=== PATIENT | female | born 1950 | race Caucasian/White ===

== ENCOUNTER → 2018-01-22 08:57 | Outpatient (CLI) | payer MEDICARE, OTHER, SELFPAY ==
[2018-01-22 09:35] LABS: Add Manual Diff / Slide Review NO; Basophils Percent Auto 0.9 % (0-2); Eosinophils Percent Auto 4.4 % (2-4); Hematocrit 41.4 % (36-46); Hemoglobin 14.5 g/dL (12.0-16.0); Lymphocytes Percent Auto 31.1 % (25-40); Mean Corpuscular HGB Conc 35.1 % (30-36); Mean Corpuscular Hemoglobin 31.9 PG (26-34); Monocytes Percent Auto 9.6 % (3-14); Neutrophils Absolute Auto 2300 /uL (3000-5900); Platelet Count 232 X10^3/uL (150-400); Red Blood Cell Count 4.55 X10^6/uL (4.0-5.2); Red Cell Distribution Width 12.8 % (11.6-14.8); White Blood Cell Count 4.3 X10^3/uL (4.5-11.0)
[2018-01-22 09:49] LABS: Alanine Aminotransferase 20 IU/L (9-52); Albumin 4.5 g/dL (3.5-5.0); Albumin Globulin Ratio 1.7 (1.0-2.8); Alkaline Phosphatase 69 U/L (38-126); Aspartate Aminotransferase 29 IU/L (14-36); Bilirubin Total 0.7 mg/dL (0.2-1.3); Blood Urea Nitrogen 16 mg/dL (7-17); Calcium 9.8 mg/dL (8.4-10.2); Carbon Dioxide 29 mmol/L (22-32); Chloride 108 mmol/L (98-107); Cholesterol 243 mg/dL (140-199); Estimated Glomerular Filt Rate 55.3 mL/min (>60); Globulin 2.7 g/dL (1.7-4.1); Glucose 95 mg/dL (80-110); HDL Cholesterol 51 mg/dL (40-60); HEMOLYSIS < 15 (0-50); LDL Cholesterol Calculated 170 mg/dL (<100); Potassium 5.1 mmol/L (3.4-5.1); Sodium 147 mmol/L (137-145); Total Protein 7.2 g/dL (6.3-8.2); Triglycerides 108 mg/dL (35-150)
== END ==
PROVIDERS: PCP Physician Assistant; Visit Provider Physician Assistant
DX: I10 Essential (primary) hypertension (principal); E78.5 Hyperlipidemia, unspecified
CPT/HCPCS: 36415; 80053; 80061; 85025

== ENCOUNTER → 2019-01-16 11:05 | Outpatient (CLI) | payer MEDICARE, OTHER, SELFPAY ==
[2019-01-16 12:13] LABS: Add Manual Diff / Slide Review NO; Basophils Absolute Auto 0 /uL (0-100); Basophils Percent Auto 0.7 % (0-2); Eosinophils Absolute Auto 200 /uL (0-450); Eosinophils Percent Auto 3.2 % (2-4); Hematocrit 38.6 % (36-46); Hemoglobin 13.6 g/dL (12.0-16.0); Lymphocytes Absolute Auto 1100 /uL (1100-4500); Lymphocytes Percent Auto 22.9 % (25-40); Mean Corpuscular HGB Conc 35.1 % (30-36); Mean Corpuscular Hemoglobin 32.1 PG (26-34); Mean Corpuscular Volume 91.4 fL (80-100); Monocytes Absolute Auto 400 /uL (0-900); Monocytes Percent Auto 8.5 % (3-14); Neutrophils Absolute Auto 3200 /uL (1500-7000); Neutrophils Percent Auto 64.7 % (50-75); Platelet Count 256 X10^3/uL (150-400); Red Blood Cell Count 4.22 X10^6/uL (4.0-5.2); Red Cell Distribution Width 12.8 % (11.6-14.8); White Blood Cell Count 4.9 X10^3/uL (4.5-11.0)
[2019-01-16 12:31] LABS: Alanine Aminotransferase 20 IU/L (9-52); Albumin 4.4 g/dL (3.5-5.0); Albumin Globulin Ratio 1.5 (1.0-2.8); Alkaline Phosphatase 75 U/L (38-126); Aspartate Aminotransferase 32 IU/L (14-36); Bilirubin Total 0.8 mg/dL (0.2-1.3); Blood Urea Nitrogen 19 mg/dL (7-17); Calcium 9.3 mg/dL (8.4-10.2); Carbon Dioxide 27 mmol/L (22-32); Chloride 107 mmol/L (98-107); Cholesterol 223 mg/dL (140-199); Estimated Glomerular Filt Rate 55.1 mL/min (>60); Globulin 2.9 g/dL (1.7-4.1); Glucose 90 mg/dL (80-110); HDL Cholesterol 51 mg/dL (40-60); HEMOLYSIS < 15 (0-50); LDL Cholesterol Calculated 149 mg/dL (<100); Potassium 4.1 mmol/L (3.4-5.1); Sodium 141 mmol/L (137-145); Total Protein 7.3 g/dL (6.3-8.2); Triglycerides 116 mg/dL (35-150)
== END ==
PROVIDERS: PCP Physician Assistant; Visit Provider Physician Assistant
DX: E78.5 Hyperlipidemia, unspecified (principal); I10 Essential (primary) hypertension
CPT/HCPCS: 36415; 80053; 80061; 85025

== ENCOUNTER → 2019-02-16 14:15 | Outpatient (CLI) | payer MEDICARE, OTHER, SELFPAY ==
--- NOTE | 2019-02-16 | DI.MG.S_ITS ---
BILATERAL DIGITAL SCREENING MAMMOGRAM 3D/2D WITH CAD: 02/16/2019 CLINICAL: Routine screening. Baseline exam. Comparison is made to exams dated: 03/25/2013 mammogram, 06/28/2010 mammogram, and 11/08/2006 mammogram - [facility]. There are scattered fibroglandular elements in both breasts. Current study was also evaluated with a Computer Aided Detection (CAD) system. There are new 0.9 cm grouped linear heterogeneous calcifications in the left breast at 1 o'clock middle depth. No other significant masses, calcifications, or other findings are seen in either breast. IMPRESSION: INCOMPLETE: NEEDS ADDITIONAL IMAGING EVALUATION The new 0.9 cm grouped linear heterogeneous calcifications in the left breast are indeterminate. Mediolateral, spot magnification, and additional views are recommended. This exam was interpreted at Station ID: [id number]. NOTE: For mammograms, a report in lay terms will be sent to the patient. Approximately 15% of breast malignancies will not be visualized mammographically. In the management of a palpable breast mass, a negative mammogram must not discourage biopsy of a clinically suspicious lesion. Electronically Signed By: Wade Mas M.D. aty/:02/16/2019 15:05:23 letter sent: Additional Imaging Needed ACR BI-RADS Category 0: Incomplete [id number]
== END ==
PROVIDERS: PCP Physician Assistant; Visit Provider Physician Assistant
DX: Z12.31 Encounter for screening mammogram for malignant neoplasm of breast (principal); M85.852 Other specified disorders of bone density and structure, left thigh; Z78.0 Asymptomatic menopausal state; Z90.722 Acquired absence of ovaries, bilateral
CPT/HCPCS: 77063; 77067; 77080

== ENCOUNTER → 2019-12-07 09:19 | Outpatient (CLI) | payer MEDICARE, OTHER, SELFPAY ==
[2019-12-07 10:11] LABS: Add Manual Diff / Slide Review NO; Basophils Absolute Auto 0 /uL (0-100); Eosinophils Absolute Auto 100 /uL (0-450); Eosinophils Percent Auto 3.1 % (2-4); Hematocrit 37.9 % (36-46); Hemoglobin 13.2 g/dL (12.0-16.0); Lymphocytes Absolute Auto 1200 /uL (1100-4500); Lymphocytes Percent Auto 28.3 % (25-40); Mean Corpuscular HGB Conc 34.7 % (30-36); Mean Corpuscular Hemoglobin 31.8 PG (26-34); Mean Corpuscular Volume 91.4 fL (80-100); Monocytes Absolute Auto 400 /uL (0-900); Monocytes Percent Auto 8.6 % (3-14); Neutrophils Absolute Auto 2400 /uL (1500-7000); Platelet Count 232 X10^3/uL (150-400); Red Blood Cell Count 4.14 X10^6/uL (4.0-5.2); Red Cell Distribution Width 12.7 % (11.6-14.8); White Blood Cell Count 4.1 X10^3/uL (4.5-11.0)
[2019-12-07 10:25] LABS: Alanine Aminotransferase 23 IU/L (<35); Albumin 4.3 g/dL (3.5-5.0); Albumin Globulin Ratio 1.6 (1.0-2.8); Alkaline Phosphatase 79 U/L (38-126); Aspartate Aminotransferase 30 IU/L (14-36); BUN Creatinine Ratio 14.1 (6-22); Bilirubin Total 0.6 mg/dL (0.2-1.3); Blood Urea Nitrogen 13 mg/dL (7-17); Calcium 9.7 mg/dL (8.4-10.2); Carbon Dioxide 27 mmol/L (22-32); Chloride 109 mmol/L (98-107); Cholesterol 160 mg/dL (140-199); Estimated Glomerular Filt Rate > 60.0 mL/min (>60); Globulin 2.7 g/dL (1.7-4.1); Glucose 99 mg/dL (80-110); HDL Cholesterol 47 mg/dL (40-60); HEMOLYSIS < 15 (0-50); LDL Cholesterol Calculated 86 mg/dL (<100); Potassium 4.3 mmol/L (3.4-5.1); Sodium 141 mmol/L (137-145); Triglycerides 137 mg/dL (35-150)
[2019-12-07 11:03] LABS: TSH w/ Reflex to FT4 2.79 uIU/mL (0.47-4.68)
[2019-12-07 11:12] LABS: Vitamin B12 715 pg/mL (239-931)
== END ==
PROVIDERS: PCP Family Medicine; Referring Provider Family Medicine; Visit Provider Family Medicine
DX: E78.5 Hyperlipidemia, unspecified (principal); R41.3 Other amnesia
CPT/HCPCS: 36415; 80053; 80061; 82607; 84443; 85025

== ENCOUNTER → 2019-12-08 09:07 | Outpatient (CLI) | payer MEDICARE, OTHER, SELFPAY ==
--- NOTE | 2019-12-08 09:09 | DI.MRI.S_ITS ---
PROCEDURE: MR STROKE Pre- and post-contrast brain MRI, non-contrast brain MR angiogram, pre- and postcontrast neck MR angiogram INDICATIONS: memory loss TECHNIQUE: Brain: Noncontrast axial T1 spin echo, axial T2 fast spin echo, sagittal and axial FLAIR, coronal T2 fast spin echo, axial gradient echo, axial diffusion and ADC through the brain. After the administration of contrast, axial 3D VIBE of the cranial vasculature and brain. Brain MRA: Non-contrast 3-D time of flight MR angiogram, with multiple icayfiq-wxjbxhzog-icyuflirny (MIP) reformats performed. Neck MRA: Axial and sagittal TruFISP through the neck. Coronal dynamic MR angiogram during administration of contrast in the arterial and venous phases, with 3-dimenstional qbgqsdf-ofockpbgl-vkeaqxmxrp (MIP) reformats constructed from subtraction images. COMPARISON: None. FINDINGS: Image quality: Limited secondary to motion artifact. BRAIN: CSF spaces: Ventricles are normal in size and shape. Basal cisterns are patent. No extra-axial fluid collections. Brain: No intracranial bleeds or mass effects. There is mild, diffuse cerebral volume loss. There are mild periventricular and subcortical white matter chronic microvascular ischemic changes. Fajardo-white matter interface is normal. Diffusion weighted images show no acute ischemic insults. Brainstem appears normal. Normal intravascular flow voids are present. No abnormal intracranial enhancement. Skull and face: Calvarial marrow signal is normal. Orbits appear normal. Sinuses: Sinuses and mastoids are clear. BRAIN MR ANGIOGRAM: Anterior circulation: Intracranial internal carotid arteries are normal in size and enhancement. The flow within the paired anterior cerebral arteries is normal and symmetric. The flow within the middle cerebral arteries is normal and symmetric. The anterior communicating artery is seen. No stenoses, occlusions, or aneurysms. Posterior circulation: The visualized portions of the vertebral arteries demonstrate normal caliber, and join to form a normal appearing basilar artery. The flow within the posterior cerebral arteries is normal and symmetric. No stenoses, occlusions, or aneurysms. NECK MR ANGIOGRAM: Carotids: Great vessels demonstrate a conventional anatomy as they arise from the aortic arch. The origins of the common carotid arteries are poorly visualized due to motion artifact. The calibers and courses of both common carotid arteries are normal. The bifurcation regions appear normal bilaterally. The internal carotid arteries demonstrate normal course and caliber. Posterior circulation: The origins of the vertebral arteries are poorly visualized due to motion artifact. More superior portions of both vertebral arteries demonstrate normal course and caliber, and join to form a normal appearing basilar artery. Miscellaneous: Subclavian arteries appear patent. Pre-contrast images through the neck show no soft tissue abnormalities. IMPRESSION: BRAIN MRI: 1. No acute intracranial disease process. 2. No areas of acute or chronic infarction. 3. No abnormal intracranial mass or suspicious postcontrast enhancement. 4. Mild, diffuse cerebral volume loss. 5. Mild periventricular and subcortical white matter chronic microvascular ischemic change. BRAIN MR ANGIOGRAM: No large vessel occlusion, hemodynamically significant stenosis, vascular dissection or aneurysm. NECK MR ANGIOGRAM: 1. No large vessel occlusion, hemodynamically significant stenosis or vascular dissection. 2. Origins of the common carotid arteries and vertebral arteries poorly visualized due to motion artifact. Dictated by: Teresa Macias MD, PhD on 12/08/2019 at 13:42 Approved by: Teresa Macias MD, PhD on 12/08/2019 at 14:22
== END ==
PROVIDERS: PCP Family Medicine; Referring Provider Family Medicine; Visit Provider Family Medicine
DX: R41.3 Other amnesia (principal); E78.5 Hyperlipidemia, unspecified; F41.9 Anxiety disorder, unspecified
CPT/HCPCS: 70548; 70553; A9579

== ENCOUNTER 2021-09-07 13:48 | Emergency (ER) | payer MEDICARE, OTHER, SELFPAY ==
[2021-09-07 14:15] VITALS: BP 133/77; PULSE 77; RESP 15; TEMP 36.6; O2SAT 97; BMI 29.7
[2021-09-07] MEDS: TET,DIPH,PERTUSS(ACELL),VAC/PF 0.5 ML SYRINGE IM (14:46)
--- NOTE | 2021-09-07 14:46 | DI.RAD.S_ITS ---
PROCEDURE: XR HAND LT MIN 3V INDICATIONS: dog bite TECHNIQUE: 3 views of the hand(s) acquired. COMPARISON: None. FINDINGS: Bones: No fractures or dislocations. Carpal bones are normally aligned. No suspicious bony lesions. Soft tissues: No suspicious soft tissue calcifications. No radiopaque foreign body. No soft tissue gas. IMPRESSION: No evidence acute bony abnormality of the left hand Dictated by: Danyel Cazares M.D. on 09/07/2021 at 15:22 Approved by: Danyel Cazares M.D. on 09/07/2021 at 15:23
--- NOTE | 2021-09-07 14:49 | ED_ITS ---
HPI - Animal Bite <Flavia Skaggs [facility] - Last Filed: 09/07/21 20:04> General Chief Complaint: Animal Bite Stated Complaint: dog bite Time Seen by Provider: 09/07/21 14:46 Source: patient Mode of arrival: Ambulatory History of Present Illness HPI narrative: This is a 71-year-old female presents to the emergency department after a known dog bite to the left hand. Patient states the dog is up-to-date on his vacc inations, she needs a tetanus vaccination update. She states the dog is her daughters, the dog is well, she has a laceration to the dorsum of her left hand 4 cm long, with 2 small lacerations less than 0.5 cm adjacent to this on the dorsum of her left hand. She is not on any anticoagulants, denies any mobility deficit or problems with her left hand after this injury. She states that she put a dressing on it and the bleeding has stopped but has not cleaned yet. She took Tylenol 0800 hours this morning, denies any other pain medication. She denies any allergies. Related Data Home Medications Medication Instructions Recorded Confirmed ascorbate calcium (vitamin C) 500 500 mg PO DAILY 11/17/19 04/20/20 mg tablet calcium-vitamin C-vit D2-min tablet tab PO 11/17/19 04/20/20 cranberry extract 650 mg capsule 650 mg PO DAILY cap 11/17/19 04/20/20 doxylamine succinate 25 mg tablet 25 mg PO BEDTIME PRN 11/17/19 04/20/20 (Unisom (doxylamine)) glucosamine HCl 1,500 mg tablet 1,500 mg PO DAILY 11/17/19 04/20/20 grape seed extract 50 mg capsule 50 mg PO ONCE 11/17/19 04/20/20 (Grape Seed) magnesium chloride 64 mg 128 mg PO DAILY 11/17/19 04/20/20 tablet,extended release melatonin 10 mg tablet 10 mg PO BEDTIME PRN 11/17/19 04/20/20 milk thistle seed mg PO 11/17/19 04/20/20 dv-awohjtpbfc-sbxlmkhmb-turmeri 250 mg-250 mg tablet (Liver Complex) multivitamin 1 tab PO DAILY 11/17/19 04/20/20 multivitamin 1 tab PO DAILY 11/17/19 04/20/20 omega-3 fatty acids-fish oil 360 1 cap PO DAILY 11/17/19 04/20/20 mg-1,200 mg capsule (Fish Oil) zinc picolinate 30 mg-copper 1 tab PO tab 11/17/19 04/20/20 gluconate 2 mg tablet Previous Rx's Medication Instructions Recorded estradiol 10 mcg vaginal tablet 10 mcg VAG 2XW #48 tab 12/24/19 (Vagifem) trazodone 50 mg tablet See Rx Instructions .ROUTE 12/30/19 .COMPLEX #60 tab diphenoxylate-atropine 2.5 1 tab PO BID PRN #20 tab 03/15/20 mg-0.025 mg tablet atorvastatin 10 mg tablet 10 mg PO DAILY #90 tab 06/27/21 amoxicillin 875 mg-potassium 1 tab PO BID 7 Days #14 tab 09/07/21 clavulanate 125 mg tablet mupirocin 2 % topical ointment 1 applic TOPICAL BID PRN #15 g 09/07/21 Allergies Allergy/AdvReac Type Severity Reaction Status Date / Time No Known Drug Allergies Allergy Verified 09/07/21 14:18 Review of Systems <ROSANNE Montalvo - Last Filed: 09/07/21 20:04> Review of Systems Narrative: General: denies fever, chills, malaise, sweats, fatigue Head/Neck: denies headache, neck pain, dizziness Eyes: denies visual changes, eye pain Cardio: denies chest pain, palpitations, edema Respiratory: denies dyspnea, cough, orthopnea MSK: denies joint pain, muscle weakness Skin: denies rash, itching, left hand skin tear verses laceration, and 2 small skin tears/lacerations next to this. Neuro: denies numbness, tingling Patient History <ROSANNE Montalvo - Last Filed: 09/07/21 20:04> Medical History Colitis (~1984) Fecal incontinence (~2004) Foot pain (~2019) Fractures (~1959) Frequent UTI (~1994) Tinnitus (~2017) Ulcerative colitis (~1984) Wears glasses Surgical History Anesthesia H/O wrist surgery (~1961) History of hysterectomy (~1989) History of knee surgery (~2005) Family History Mother Diabetes mellitus Hypertension Social History marital status: household members: spouse salomón/orthodox: [employer] / [employer] Smoking Status: Never smoker alcohol intake: never substance use type: does not use Smoking Status: Never smoker alcohol intake frequency: holidays/special occasions only Substance Use Type: does not use Exam <ROSANNE Montalvo - Last Filed: 09/07/21 20:04> Narrative Exam Narrative: Independently reviewed vitals signs and nursing notes. General: cooperative, comfortable, in no acute distress, well developed and well groomed Head: atraumatic, symmetrical facial expressions Neck: supple, atraumatic, without lymphadenopathy. Eyes: pupils equal round and reactive, EOMI Nose: nares patent, no rhinorrhea Mouth/Throat: moist mucus membranes Cardiovascular: regular rate and rhythm, no peripheral edema, warm extremities Respiratory: normal effort, able to speak in complete sentences, no audible wheezing, stridor, or rales. No retractions or tachypnea. GI: abdomen soft, nontender to palpation, nondistended, no masses, no exquisite tenderness with exam, without guarding or rebound. MSK: moves all extremities, ambulatory w/steady gait, neurovascularly intact, no weakness Skin: brisk capillary refill, no rash, no erythema, left hand with approximate 4 cm laceration versus skin tear on the dorsum, 2 small puncture wounds/skin tears lateral to this. No bleeding at this time, is controlled with pressure dressing, dressing removed and is not bleeding. No visible contamination to the wound. Patient has thin/fragile skin. Neuro: normal speech and cognition, A&O x3, normal tone Psych: mental status is grossly normal, congruent mood, normal affect, pleasant and cooperative Initial Vital Signs Initial Vital Signs: Vital Signs Temperature 97.8 F 09/07/21 14:15 Pulse Rate 77 09/07/21 14:15 Respiratory Rate 15 09/07/21 14:15 Blood Pressure 133/77 09/07/21 14:15 Pulse Oximetry 97 09/07/21 14:15 <Jadon Hernandez DO - Last Filed: 09/09/21 07:14> Initial Vital Signs Initial Vital Signs: Vital Signs Temperature 97.8 F 09/07/21 14:15 Pulse Rate 77 09/07/21 14:15 Respiratory Rate 15 09/07/21 14:15 Blood Pressure 133/77 09/07/21 14:15 Pulse Oximetry 97 09/07/21 14:15 Procedures <ROSANNE Montalvo - Last Filed: 09/07/21 20:04> Laceration Repair Laceration 1: Site: hand Side (If applicable): left Size (cm): 4 Description: linear, irregular and contaminated Depth: simple, single layer Local Anesthetic: lidocaine 1% and with bicarb Amount of anesthesia used (mL): 8 Pre-repair: wound explored, irrigated extensively and deep structures intact Skin layer closed with: nylon Skin layer suture size: 5-0 and 6-0 Number of sutures: 12 Technique: simple, interrupted and other (One 1 cm laceration to over the MCP joint of the left hand, to loose stitches were placed, wound edges are closely approximated, no bleeding or rainage, 3.5 cm irregular laceration/skin tear to the dorsum of her left hand has 10 sutures both 5 0 and 6 0 Ethilon with loose sutures, wound edges are cl) Course <ROSANNE Montalvo - Last Filed: 09/07/21 20:04> Orders Ordered: Discontinued Medications Acetaminophen (Acetaminophen 325 Mg Tablet) 975 mg PO NOW ONE Stop: 09/07/21 14:47 Last Admin: 09/07/21 14:56 Dose: 975 mg Documented by: KATE Amoxicillin/Clavulanate Potassium (Amoxicillin/Clav 875/125 Mg) 1 tab PO NOW ONE Stop: 09/07/21 14:47 Last Admin: 09/07/21 14:56 Dose: 1 tab Documented by: KATE Bacitracin (Bacitracin Oint 0.9 Gm Pckt) 1 applic TOP NOW ONE Stop: 09/07/21 15:09 Last Admin: 09/07/21 15:37 Dose: 1 applic Documented by: BTONER Diphtheria/Tetanus/Acell Pertussis (Tet,Diph,Pertuss(Acell),Vac/Pf 0.5 Ml Syringe) 0.5 ml IM .ONCE ONE Stop: 09/07/21 14:43 Last Admin: 09/07/21 14:46 Dose: 0.5 ml Documented by: KATE Lidocaine/Sodium Bicarbonate (Lido 1%/Sod Bicarb 8.4% (10ml) 10 Ml Syringe) 10 ml INJ NOW ONE Stop: 09/07/21 14:47 Last Admin: 09/07/21 14:56 Dose: 10 ml Documented by: KATE Vital Signs Vital signs: Vital Signs - 8 hr 09/07/21 14:15 09/07/21 16:00 Temperature 97.8 F Pulse Rate 77 69 Respiratory Rate 15 16 Blood Pressure 133/77 135/72 Pulse Oximetry 97 96 <Jadon Hernandez DO - Last Filed: 09/09/21 07:14> Orders Ordered: Discontinued Medications Acetaminophen (Acetaminophen 325 Mg Tablet) 975 mg PO NOW ONE Stop: 09/07/21 14:47 Last Admin: 09/07/21 14:56 Dose: 975 mg Documented by: KATE Amoxicillin/Clavulanate Potassium (Amoxicillin/Clav 875/125 Mg) 1 tab PO NOW ONE Stop: 09/07/21 14:47 Last Admin: 09/07/21 14:56 Dose: 1 tab Documented by: KATE Bacitracin (Bacitracin Oint 0.9 Gm Pckt) 1 applic TOP NOW ONE Stop: 09/07/21 15:09 Last Admin: 09/07/21 15:37 Dose: 1 applic Documented by: BTONER Diphtheria/Tetanus/Acell Pertussis (Tet,Diph,Pertuss(Acell),Vac/Pf 0.5 Ml Syringe) 0.5 ml IM .ONCE ONE Stop: 09/07/21 14:43 Last Admin: 09/07/21 14:46 Dose: 0.5 ml Documented by: KATE Lidocaine/Sodium Bicarbonate (Lido 1%/Sod Bicarb 8.4% (10ml) 10 Ml Syringe) 10 ml INJ NOW ONE Stop: 09/07/21 14:47 Last Admin: 09/07/21 14:56 Dose: 10 ml Documented by: KATE Vital Signs Vital signs: Vital Signs - 8 hr 09/07/21 14:15 09/07/21 16:00 Temperature 97.8 F Pulse Rate 77 69 Respiratory Rate 15 16 Blood Pressure 133/77 135/72 Pulse Oximetry 97 96 [facility] [place] - Animal Bite <Flavia Skaggs, [facility] - Last Filed: 09/07/21 20:04> Imaging Data Extremity x-ray #1: Radiologist's Impression: PROCEDURE:? XR HAND LT MIN 3V ? INDICATIONS:? dog bite ? TECHNIQUE:? 3 views of the hand(s) acquired.? ? COMPARISON:? None. ? FINDINGS:? ? Bones:? No fractures or dislocations.? Carpal bones are normally aligned.? No suspicious bony lesions.? ? Soft tissues:? No suspicious soft tissue calcifications.? No radiopaque foreign body.? No soft tissue gas. ? ? IMPRESSION:? No evidence acute bony abnormality of the left hand ? ? Dictated by: Danyel Cazares M.D. on 09/07/2021 at 15:22 ? ? Approved by: Danyel Cazares M.D. on 09/07/2021 at 15:23 ? [facility] [place] Narrative Medical decision making narrative: This is a 71-year-old female who presents to emergency department after a dog bite to the dorsum of her left hand. Patient is left handed, the dog is up-to-date on his rabies vaccinations, patient needed a tetanus vaccination, this was updated today. Patient head a 3.5 cm skin tear verses laceration to the dorsum of her left hand, this was irregular. Wound was cleansed with normal saline and Hibiclens, patient was numbed with lidocaine with sodium bicarb,, she tolerated procedure well. She received a total of 12 sutures, wound edges were approximated closely, some loose stitches were placed to allow for drainage. Patient understands to have her sutures removed in 7-10 days, she has been icing it, will take Tylenol for pain, she was given some Tylenol today. Patient was given Augmentin for dog bite prophylaxis. Patient understands to follow-up with her primary care provider or return to the emergency department for any worsening pain, signs of infection, mobility deficit, or any other concerns. X- ray was negative for foreign body or fracture. Patient is appropriate and amenable to discharge home. Vital signs are stable on repeat examination is unremarkable. Patient has been informed of results. Patient has been given strict return to ER precautions for any new or worsening symptoms. Patient understands to follow up closely with outpatient providers as instructed. Patient understands plan and agrees to discharge home. All questions and concerns answered at this time. Discharge Plan Departure Patient Disposition: Home Clinical Impression: Dog bite of dorsum of hand Laceration of hand Qualifiers: Encounter type: initial encounter Foreign body presence: without foreign body Laterality: left Qualified Code(s): S61.412A - Laceration without foreign body of left hand, initial encounter Activity Restrictions/Additional Instructions: *You have been diagnosed with a dog bite to the dorsum of your left hand. Because your left handed, please try and decrease the amount of things your doing with this hand and rest it as much as possible. Use your right hand when you can. Keep it covered while you have sutures in place with the Band-Aid at minimum. Please take the antibiotic for the next 7 days twice a day. Please follow-up in the walk-in clinic for suture removal or call Dr. Garcia and schedule an appointment at the office for a follow-up in 7 days. You can do gentle wound care twice a day, change your bandage, do not scrub, you can take a shower and let the water run over it but please do not soak it. Thank you for trusting us with your care, it was nice to meet you today, your tetanus was updated, you do not need another 1 for 10 years. Please ice this, you can use the Sumit bandage for compression to help prevent swelling. Keep it elevated or on top of the table if your sitting, this will help prevent swelling as well. Take Tylenol or ibuprofen as needed for your pain. Welcome back home, I wish you a speedy recovery. *What to do: *Please continue to take your regular medications as directed. [x ] New medication prescriptions sent to your pharmacy: [ [facility]] [ ] New medication written as a paper prescription [ ] No new medications given *Please follow up with your primary care provider in 2-3 days, call for an appointment. Let them know you were seen in the Emergency Department and that we asked that you be seen for follow-up. We will electronically transmit a record of today's note if your PCP is in our system *If you do not have a primary care provider please contact [phone] to establish care with one of the [facility] primary care providers. *Return to Emergency Department if you should have any new, worsening or concerning symptoms, such as [fever greater than 101F, chills, worsening pain, persistent vomiting or other bothersome symptoms] Prescriptions: New amoxicillin-pot clavulanate 875-125 mg tablet 1 tab PO BID 7 Days Qty: 14 0RF mupirocin 2 % ointment 1 applic topical BID PRN (Reason: wound care) Qty: 15 0RF No Action cranberry extract 650 mg capsule 650 mg PO DAILY 0RF Rx Instructions: administer with a meal multivitamin Tablet 1 tab PO DAILY 0RF Rx Instructions: ROBERTO CARLOSDOMI MENTAL ACUITY Liver Complex 250-250 mg tablet PO 0RF Rx Inst[facility]: [facility] grape seed extract [Grape Seed] 50 mg capsule 50 mg PO ONCE 0RF Rx Instructions: CHRISTINA VIVIX GRAPE EXTRACT multivitamin Tablet 1 tab PO DAILY 0RF Rx Instructions: ROBERTO CARLOSDOMI MULTIVITAMIN ascorbate calcium (vitamin C) 500 mg tablet 500 mg PO DAILY 0RF zinc picolinate-copper gluc 30-2 mg tablet 1 tab PO 0RF Rx Instructions: ROBERTO CARLOSDOMI NUTRIFERON omega-3 fatty acids-fish oil [Fish Oil] 360-1,200 mg capsule 1 cap PO DAILY 0RF Rx Instructions: [facility] OMEGA GUARD glucosamine HCl 1,500 mg tablet 1,500 mg PO DAILY 0RF Rx Instructions: ROBERTO CARLOSDOMI ADVANCED JOINT COMPLEX calcium-vitamin C-vit D2-min Tablet PO 0RF Rx Instructions: ROBERTO CARLOSDOMI OSTEOMATRIX melatonin 10 mg tablet 10 mg PO BEDTIME PRN0RF Unisom (doxylamine) 25 mg tablet 25 mg PO BEDTIME PRN0RF magnesium chloride 64 mg tablet extended release 128 mg PO DAILY 0RF estradiol [Vagifem] 10 mcg tablet 10 mcg VAG 2XW Qty: 48 3RF trazodone 50 mg tablet See Rx Instructions .ROUTE .COMPLEX Qty: 60 5RF Rx Instructions: Take 1-2 tabs at bedtime as needed for sleep; diphenoxylate-atropine 2.5-0.025 mg tablet 1 tab PO BID PRN (Reason: diarrhea) Qty: 20 0RF atorvastatin 10 mg tablet 10 mg PO DAILY Qty: 90 0RF Rx Instructions: 06/27/21 due for an appointment and labs, thanks. Referrals: Syed Garcia MD [Primary Care Provider] - <Jadon Hernandez DO - Last Filed: 09/09/21 07:14> Cosign ED Attending Cosignature Attestation: Dr Hernandez Co-Sign Statement: I was available for consultation during this patient's emergency department visit. This chart is signed by myself for administrative purposes only. I did not have direct contact with this patient during this visit. They were seen independently by the APC.
[2021-09-07] MEDS: ACETAMINOPHEN 325 MG TABLET 975 MG PO (14:56)
[2021-09-07] MEDS: LIDO 1%/SOD BICARB 8.4% (10ML) 10 ML SYRINGE INJ (14:56)
[2021-09-07] MEDS: AMOXICILLIN/CLAV 875/125 MG 1 TAB PO (14:56)
[2021-09-07] MEDS: BACITRACIN OINT 0.9 GM PCKT 1 APPLIC TOP (15:37)
[2021-09-07 16:00] VITALS: BP 135/72; PULSE 69; RESP 16; O2SAT 96
== END 2021-09-07 16:01 | disposition home or self-care (01) ==
PROVIDERS: Emergency Provider Nurse Practitioner Critical Care Medicine; PCP Family Medicine
DX: S61.412A Laceration without foreign body of left hand, initial encounter (principal); W54.0XXA Bitten by dog, initial encounter; Z23 Encounter for immunization
CPT/HCPCS: 12002; 73130; 90471; 99283; 99284; 90715

== ENCOUNTER → 2021-10-02 12:28 | Outpatient (CLI) | payer MEDICARE, OTHER, SELFPAY ==
[2021-10-02 12:59] LABS: Add Manual Diff / Slide Review NO; Basophils Absolute Auto 100 /uL (0-100); Basophils Percent Auto 1.2 % (0-2); Eosinophils Absolute Auto 200 /uL (0-450); Eosinophils Percent Auto 3.7 % (2-4); Hematocrit 36.3 % (36-46); Hemoglobin 12.9 g/dL (12.0-16.0); Lymphocytes Absolute Auto 1200 /uL (1100-4500); Lymphocytes Percent Auto 25.5 % (25-40); Mean Corpuscular HGB Conc 35.6 % (30-36); Monocytes Absolute Auto 500 /uL (0-900); Monocytes Percent Auto 10.2 % (3-14); Neutrophils Absolute Auto 2700 /uL (1500-7000); Neutrophils Percent Auto 59.4 % (50-75); Platelet Count 218 X10^3/uL (150-400); Red Blood Cell Count 4.04 X10^6/uL (4.0-5.2); Red Cell Distribution Width 12.8 % (11.6-14.8); White Blood Cell Count 4.6 X10^3/uL (4.5-11.0)
[2021-10-02 13:12] LABS: Alanine Aminotransferase 23 IU/L (<35); Albumin 4.6 g/dL (3.5-5.0); Albumin Globulin Ratio 1.6 (1.0-2.8); Alkaline Phosphatase 65 U/L (38-126); Aspartate Aminotransferase 35 IU/L (14-36); BUN Creatinine Ratio 10.4 (6-22); Blood Urea Nitrogen 12 mg/dL (7-17); Calcium 9.5 mg/dL (8.4-10.2); Carbon Dioxide 28 mmol/L (22-32); Chloride 107 mmol/L (98-107); Estimated Glomerular Filt Rate 51 mL/min (>60); Globulin 2.8 g/dL (1.7-4.1); Glucose 102 mg/dL (80-110); HEMOLYSIS < 15 (0-50); Potassium 4.2 mmol/L (3.4-5.1); Sodium 140 mmol/L (137-145); Total Protein 7.4 g/dL (6.3-8.2)
[2021-10-02 13:43] LABS: TSH w/ Reflex to FT4 2.42 uIU/mL (0.47-4.68)
[2021-10-02 14:00] LABS: Vitamin B12 927 pg/mL (239-931)
== END ==
PROVIDERS: PCP Family Medicine; Referring Provider Family Medicine; Visit Provider Family Medicine
DX: E78.5 Hyperlipidemia, unspecified (principal); R41.3 Other amnesia
CPT/HCPCS: 36415; 80053; 82607; 84443; 85025

== ENCOUNTER → 2022-11-29 12:30 | Outpatient (CLI) | payer MEDICARE, OTHER, SELFPAY ==
--- NOTE | 2022-11-29 12:31 | DI.US.S_ITS ---
PROCEDURE: US PERIPH VENOUS LOW EXTREM LT INDICATIONS: F/U DVT TECHNIQUE: Real-time imaging, as well as color and pulse Doppler interrogation, were performed of the lower extremity deep veins from the inguinal ligament to the popliteal fossa. COMPARISON: None. FINDINGS: Nonocclusive thrombus identified in the left popliteal vein. The common femoral and superficial femoral veins are normally compressible, and free of intraluminal thrombus. Color and pulse Doppler demonstrate normal phasic intraluminal flow. There is normal augmentation response to distal compression maneuver. IMPRESSION: Nonocclusive thrombus involving the left popliteal vein. Dictated by: Teresa Macias MD, PhD on 11/29/2022 at 13:18 Approved by: Teresa Macias MD, PhD on 11/29/2022 at 13:19
== END ==
PROVIDERS: PCP Family Medicine; Referring Provider Family Medicine; Visit Provider Family Medicine
DX: I82.432 Acute embolism and thrombosis of left popliteal vein (principal)
CPT/HCPCS: 93971

== ENCOUNTER → 2022-12-07 08:33 | Outpatient (CLI) | payer MEDICARE, OTHER, SELFPAY ==
[2022-12-09 06:25] LABS: Cardiolipin Ab IgA <9 APL U/mL (0-11); Cardiolipin Ab IgG <9 GPL U/mL (0-14); Cardiolipin Ab IgM <9 MPL U/mL (0-12)
[2022-12-10 13:36] LABS: Protein C-Functional 117 % (73-180); Protein S-Functional 106 % (63-140)
[2022-12-10 14:53] LABS: Dil Russell Viper Venom Conf 1.2 ratio (0.8-1.2); Dilute Russell Viper Venom 76.4 sec (0.0-47.0); Dilute Russell Viper Venom Mix 62.7 sec (0.0-40.4); Lupus Reflex Interpretation Comment: (.); PTT-LA 39.7 sec (0.0-43.5)
== END ==
PROVIDERS: PCP Family Medicine; Referring Provider Family Medicine; Visit Provider Family Medicine
DX: I82.90 Acute embolism and thrombosis of unspecified vein (principal)
CPT/HCPCS: 36415; 81241; 85300; 85303; 85306; 85598; 85613; 86147

== ENCOUNTER → 2023-04-24 12:42 | Outpatient (CLI) | payer MEDICARE, OTHER, SELFPAY ==
--- NOTE | 2023-04-24 12:44 | DI.US.S_ITS ---
PROCEDURE: US [facility] VENOUS LOW EXTREM LT INDICATIONS: vte TECHNIQUE: Real-time imaging, as well as color and pulse Doppler interrogation, were performed of the lower extremity deep veins from the inguinal ligament to the popliteal fossa, with documentation of the visualized calf veins. COMPARISON: [facility], , [facility] VENOUS LOW EXTREM LT, 11/29/2022, 12:40. FINDINGS: Chronic, partially occlusive deep venous thrombosis can be seen involving the femoral vein distally as well as a portion of the superior popliteal vein. No deep venous thrombosis proximal to the level of the distal femoral vein can be seen. Left ankle edema can be seen. This study is limited by body habitus. IMPRESSION: Known, chronic deep venous thrombosis can be seen involving the distal femoral vein and the superior popliteal vein. Dictated by: Juan Vaughan M.D. on 04/24/2023 at 12:49 Approved by: Juan Vaughan M.D. on 04/24/2023 at 12:50
== END ==
PROVIDERS: PCP Family Medicine; Referring Provider Family Medicine; Visit Provider Family Medicine
DX: I82.512 Chronic embolism and thrombosis of left femoral vein (principal); I82.532 Chronic embolism and thrombosis of left popliteal vein
CPT/HCPCS: 93971

== ENCOUNTER → 2023-12-06 09:17 | Outpatient (CLI) | payer MEDICARE, OTHER, SELFPAY ==
[2023-12-06 10:14] LABS: Add Manual Diff / Slide Review NO; Basophils Absolute Auto 0 /uL (0-100); Basophils Percent Auto 0.8 % (0-2); Eosinophils Absolute Auto 200 /uL (0-450); Eosinophils Percent Auto 3.8 % (2-4); Hematocrit 37.6 % (36-46); Hemoglobin 13.1 g/dL (12.0-16.0); Lymphocytes Absolute Auto 1700 /uL (1100-4500); Mean Corpuscular HGB Conc 34.8 % (30-36); Mean Corpuscular Hemoglobin 31.5 PG (26-34); Mean Corpuscular Volume 90.5 fL (80-100); Monocytes Absolute Auto 500 /uL (0-900); Monocytes Percent Auto 9.8 % (3-14); Neutrophils Absolute Auto 3100 /uL (1500-7000); Neutrophils Percent Auto 55.6 % (50-75); Platelet Count 224 X10^3/uL (150-400); Red Blood Cell Count 4.16 X10^6/uL (4.0-5.2); White Blood Cell Count 5.6 X10^3/uL (4.5-11.0)
[2023-12-06 10:41] LABS: Alanine Aminotransferase 32 IU/L (<35); Albumin 3.8 g/dL (3.5-5.0); Albumin Globulin Ratio 1.4 (1.0-2.8); Alkaline Phosphatase 80 U/L (38-126); Aspartate Aminotransferase 34 IU/L (14-36); BUN Creatinine Ratio 17.8 (6-22); Bilirubin Total 0.9 mg/dL (0.2-1.3); Blood Urea Nitrogen 16 mg/dL (7-17); Calcium 9.2 mg/dL (8.4-10.2); Carbon Dioxide 26 mmol/L (22-32); Chloride 109 mmol/L (98-107); Cholesterol 167 mg/dL (140-199); Estimated Glomerular Filt Rate > 60 mL/min (>60); Globulin 2.7 g/dL (1.7-4.1); Glucose 144 mg/dL (80-110); HDL Cholesterol 43 mg/dL (40-60); HEMOLYSIS < 15 (0-50); LDL Cholesterol Calculated 82 mg/dL (<100); Potassium 4.4 mmol/L (3.4-5.1); Sodium 140 mmol/L (137-145); Total Protein 6.5 g/dL (6.3-8.2); Triglycerides 212 mg/dL (35-150)
[2023-12-06 12:32] LABS: Hemoglobin A1C% w Est Avg Glu 6.7 % (4.0-6.0)
== END ==
PROVIDERS: PCP Family Medicine; Referring Provider Family Medicine; Visit Provider Family Medicine
DX: I82.509 Chronic embolism and thrombosis of unspecified deep veins of unspecified lower extremity (principal); E78.5 Hyperlipidemia, unspecified; G30.9 Alzheimer's disease, unspecified; F02.80 Dementia in other diseases classified elsewhere, unspecified severity, without behavioral disturbance, psychotic disturbance, mood disturbance, and anxiety
CPT/HCPCS: 36415; 80053; 80061; 83036; 84443; 85025

== ENCOUNTER → 2024-03-31 10:53 | Outpatient (CLI) | payer MEDICARE, OTHER, SELFPAY ==
[2024-03-31 12:16] LABS: Hemoglobin A1C% w Est Avg Glu 5.8 % (4.0-6.0)
== END ==
PROVIDERS: PCP Family Medicine; Referring Provider Family Medicine; Visit Provider Family Medicine
DX: E11.9 Type 2 diabetes mellitus without complications (principal)
CPT/HCPCS: 36415; 83036

== ENCOUNTER 2024-10-07 10:05 | Day surgery (SDC) | payer MEDICARE, OTHER, SELFPAY ==
--- NOTE | 2024-10-07 | PATH_ITS ---
[facility] Accession Number: [id number] No. of containers..03 Tissue . 01 Material submitted: . PART A: colon - COLON, POLYP @ 40 CM PART B: colon - COLON, POLYP @ 35 CM PART C: rectum - COLON, POLYP @ RECTUM . 01 Diagnosis: Part A: COLON, POLYP @ 40 CM: Tubular adenoma. . Part B: COLON, POLYP @ 35 CM: Tubular adenoma. . Part C: COLON, POLYP @ RECTUM: Tubular adenoma. [facility] 10/09/2024 1422 Local . 01 Electronically signed: . Asael Willis MD, Pathologist NPI- [id number] . 01 Gross description: . Part A: COLON, POLYP @ 40 CM: Received in formalin is 1 fragment(s) of bentley, soft tissue measuring 0.3 x 0.3 x 0.3 cm submitted entirely in 1 cassette(s) . Part B: COLON, POLYP @ 35 CM: Received in formalin is 1 fragment(s) of bentley, soft tissue measuring 0.6 x 0.6 x 0.5 cm submitted entirely in 1 cassette(s) . Part C: COLON, POLYP @ RECTUM: Received in formalin is 1 fragment(s) of bentley, soft tissue measuring 0.6 x 0.6 x 0.4 cm submitted entirely in 1 cassette(s) /GAIL 10/09/2024 1422 Local . 01 Pathologist provided ICD-10: D12.6, D12.8 . 01 CPT . 721099, 316827, 739991 Specimen Comment: A courtesy copy of this report has been sent to [phone] Performed at: [address] [id number] MD Asael Willis MD Phone: [phone]
[2024-10-07 11:22] VITALS: BP 159/79; PULSE 63; RESP 16; TEMP 36.6; O2SAT 98
[2024-10-07] MEDS: LACTATED RINGERS 1,000 ML 42 ML IV (11:25)
--- NOTE | 2024-10-07 11:37 | P.HP_ITS ---
History of Present Illness History of Present Illness Date Patient Seen: 10/07/24 Chief complaint: [facility] [place] Narrative: Screening colonoscopy [facility] Medical History (Updated 01/22/24 @ 15:17 by Syed Garcia MD) External hemorrhoid Trigger thumb of right hand Acute cognitive decline Wears glasses Fractures (~1959) Foot pain (~2019) Tinnitus (~2017) Frequent UTI (~1994) Fecal incontinence (~2004) Ulcerative colitis (~1984) Colitis (~1984) Acute anxiety Surgical History Anesthesia History of knee surgery (~2005) History of hysterectomy (~1989) H/O wrist surgery (~1961) Family History Mother Diabetes mellitus Hypertension Social History marital status: household members: spouse salomón/orthodox: [employer] / [employer] Smoking Status: Never smoker alcohol intake: never substance use type: does not use Meds Home Medications and Allergies Home Medications Medication Instructions Recorded Confirmed Type calcium-vitamin C-vit D2-min tablet 1 tab PO DAILY 11/17/19 10/07/24 History glucosamine HCl 1,500 mg tablet 1,500 mg PO DAILY 11/17/19 10/07/24 History magnesium chloride 64 mg 128 mg PO DAILY 11/17/19 10/07/24 History tablet,extended release milk thistle seed 1 tab PO 11/17/19 04/20/24 History of-tuczudurpw-rrvrwwrry-turmeri 250 mg-250 mg tablet (Liver Complex) omega-3 fatty acids-fish oil 360 1 cap PO DAILY 11/17/19 10/07/24 History mg-1,200 mg capsule (Fish Oil) zinc picolinate 30 mg-copper 1 tab PO 11/17/19 04/20/24 History gluconate 2 mg tablet donepezil 10 mg tablet 10 mg PO DAILY 12/02/23 10/07/24 History metformin 500 mg tablet 500 mg PO BID #180 tabs 01/20/24 10/07/24 Rx atorvastatin 10 mg tablet 10 mg PO DAILY #90 tabs 02/20/24 10/07/24 Rx rivaroxaban 20 mg tablet (Xarelto) 20 mg PO DAILY #90 tabs 03/20/24 10/07/24 Rx sodium,potassium,mag sulfates 17.5 See Rx Instructions PO .COMPLEX 09/03/24 Rx gram-3.13 gram-1.6 gram oral soln #354 mL (Suprep Bowel Prep Kit) pregnenolone 10mg 1 cap PO DAILY 10/07/24 History Allergies Allergy/AdvReac Type Severity Reaction Status Date / Time No Known Drug Allergies Allergy Verified 04/20/24 11:09 Exam Vital Signs (past 8 hours): - 10/07/24 11:22 Temperature 97.9 F Pulse Rate 63 Respiratory Rate 16 Blood Pressure 159/79 H Pulse Oximetry 98 Oxygen Delivery Method Room Air Oxygen Delivery Method Room Air Narrative Exam Narrative: Oropharynx free of lesions Chest clear to auscultation percussion Cardiac exam reveals no S3 or murmur Assessment & Plan Assessment & Plan narrative: Screening colonoscopy. Last colonoscopy approximately 10 years ago. Risks, benefits, alternatives have been explained. Time-Based Coding :: [TOTAL MINUTES] spent with patient and on the chart (including review of chart, obtaining history, exam, reviewing outside data, placing orders, documenting exam and treatment plan, and counseling patient) on [DATE]. [employer]ometrician Document charge(s): No
--- NOTE | 2024-10-07 11:38 | PM.OP.COLON ---
Operative Date/Time/Diagnoses Date of procedure: 10/07/24 Time of procedure: 12:05 Pre-op diagnosis: See indication Post-op diagnosis: same Procedure & Clinicians Study performed: Colonoscopy Same procedure as scheduled: Yes Indications: Screening Surgeon: Robyn Ferguson Procedure Notes Procedure in detail: After informed consent was obtained the patient was placed in left lateral decubitus position. The video colonoscope was introduced the rectum slowly advanced cecum. Preparation was good. On slow withdrawal mucosa was carefully examined. The scope was removed. The patient tolerated procedure well. Blood loss none Complications none Sedation mac Findings 1 2 3-5 mm polyps at 40 cm 1 removed with Jumbo biopsy forceps the other with cold snare.. One of the 2 polyps was lost. 2. 4 mm polyp at 35 cm removed completely with Jumbo biopsy forceps 3. 1-1 point 2 cm polyp in the rectum snared and removed completely 4. Otherwise negative colonoscopy to cecum We will be in touch regarding the biopsy results but still this might be her last colonoscopy.
[2024-10-07 12:05] VITALS: BP 109/61; PULSE 61; RESP 15; TEMP 36.5; O2SAT 95
[2024-10-07 12:10] VITALS: BP 103/61; PULSE 62; RESP 18; O2SAT 97
[2024-10-07 12:15] VITALS: BP 123/71; PULSE 61; RESP 17; TEMP 36.4; O2SAT 98
== END 2024-10-07 12:35 | disposition home or self-care (01) ==
PROVIDERS: PCP Family Medicine; Referring Provider Internal Medicine Gastroenterology; Visit Provider Internal Medicine Gastroenterology
PROC: 0DJD8ZZ Inspection of Lower Intestinal Tract, Via Natural or Artificial Opening Endoscopic (ICD-10-PCS; CPT 45378; principal; 2024-10-07 11:30)
DX: Z12.11 Encounter for screening for malignant neoplasm of colon (principal); D12.8 Benign neoplasm of rectum; D12.6 Benign neoplasm of colon, unspecified
CPT/HCPCS: 45385; 45380; J2704

== ENCOUNTER → 2024-12-23 14:32 | Outpatient (CLI) | payer MEDICARE, OTHER, SELFPAY ==
[2024-12-23 15:51] LABS: Add Manual Diff / Slide Review NO; Hematocrit 34.8 % (36-46); Hemoglobin 12.5 g/dL (12.0-16.0); Lymphocytes Absolute Auto 1900 /uL (1100-4500); Mean Corpuscular HGB Conc 35.9 % (30-36); Mean Corpuscular Hemoglobin 32.0 PG (26-34); Mean Corpuscular Volume 89.2 fL (80-100); Platelet Count 261 X10^3/uL (150-400)
[2024-12-23 16:16] LABS: Alanine Aminotransferase 19 IU/L (<35); Albumin 4.1 g/dL (3.5-5.0); Albumin Globulin Ratio 1.7 (1.0-2.8); Alkaline Phosphatase 87 U/L (38-126); Blood Urea Nitrogen 13 mg/dL (7-17); Calcium 9.9 mg/dL (8.4-10.2); Carbon Dioxide 27 mmol/L (22-32); Chloride 107 mmol/L (98-107); Estimated Glomerular Filt Rate > 60 mL/min (>60); Globulin 2.4 g/dL (1.7-4.1); Glucose 154 mg/dL (70-99); HEMOLYSIS < 15 (0-50); Sodium 141 mmol/L (137-145); Total Protein 6.5 g/dL (6.3-8.2)
[2024-12-23 16:28] LABS: Potassium 4.3 mmol/L (3.4-5.1)
[2024-12-23 16:53] LABS: TSH w/ Reflex to FT4 2.52 uIU/mL (0.47-4.68)
[2024-12-23 17:12] LABS: Vitamin B12 596 pg/mL (239-931)
[2024-12-24 09:53] LABS: Cholesterol 163 mg/dL (140-199); HDL Cholesterol 40 mg/dL (40-60); Triglycerides 239 mg/dL (35-150)
[2024-12-24 09:55] LABS: Hemoglobin A1C% w Est Avg Glu 6.1 % (4.0-6.0)
== END ==
PROVIDERS: Physician Assistant; PCP Family Medicine; Referring Provider Family Medicine; Visit Provider Family Medicine
DX: E11.9 Type 2 diabetes mellitus without complications (principal); G30.9 Alzheimer's disease, unspecified; F02.80 Dementia in other diseases classified elsewhere, unspecified severity, without behavioral disturbance, psychotic disturbance, mood disturbance, and anxiety; E78.2 Mixed hyperlipidemia
CPT/HCPCS: 36415; 80053; 80061; 82607; 83036; 84443; 85025